=== PATIENT | male | born 1965 | race Caucasian/White ===

== ENCOUNTER → 2022-10-18 10:01 | Outpatient (CLI) | payer OTHER, SELFPAY ==
[2022-10-18 10:45] LABS: Add Manual Diff / Slide Review NO; Basophils Absolute Auto 0 /uL (0-100); Basophils Percent Auto 1.3 % (0-2); Eosinophils Absolute Auto 200 /uL (0-450); Eosinophils Percent Auto 5.6 % (2-4); Hematocrit 37.6 % (41-53); Lymphocytes Absolute Auto 1000 /uL (1100-4500); Lymphocytes Percent Auto 26.5 % (25-40); Mean Corpuscular HGB Conc 34.4 % (30-36); Mean Corpuscular Hemoglobin 32.1 PG (26-34); Mean Corpuscular Volume 93.3 fL (80-100); Monocytes Absolute Auto 400 /uL (0-900); Monocytes Percent Auto 10.3 % (3-14); Neutrophils Absolute Auto 2200 /uL (1500-7000); Neutrophils Percent Auto 56.3 % (50-75); Platelet Count 289 X10^3/uL (150-400); Red Blood Cell Count 4.03 X10^6/uL (4.5-5.9); Red Cell Distribution Width 13.2 % (11.6-14.8); White Blood Cell Count 3.9 X10^3/uL (4.5-11.0)
[2022-10-18 11:07] LABS: Erythrocyte Sedimentation Rate 8 MM/HR (0-15)
[2022-10-18 11:08] LABS: Alanine Aminotransferase 28 IU/L (<50); Albumin 4.1 g/dL (3.5-5.0); Albumin Globulin Ratio 1.9 (1.0-2.8); Alkaline Phosphatase 42 U/L (38-126); Aspartate Aminotransferase 35 IU/L (17-59); BUN Creatinine Ratio 20.5 (6-22); Bilirubin Total 0.6 mg/dL (0.2-1.3); Blood Urea Nitrogen 17 mg/dL (9-20); Calcium 9.5 mg/dL (8.4-10.2); Carbon Dioxide 32 mmol/L (22-32); Chloride 103 mmol/L (98-107); Cholesterol 122 mg/dL (140-199); Estimated Glomerular Filt Rate > 60 mL/min (>60); Globulin 2.2 g/dL (1.7-4.1); Glucose 101 mg/dL (70-100); HDL Cholesterol 52 mg/dL (40-60); HEMOLYSIS < 15 (0-50); LDL Cholesterol Calculated 40 mg/dL (<100); Potassium 4.6 mmol/L (3.4-5.1); Sodium 139 mmol/L (137-145); Total Protein 6.3 g/dL (6.3-8.2); Triglycerides 150 mg/dL (35-150)
[2022-10-18 11:12] LABS: Rheumatoid Factor < 8.6 IU/mL (<12.0)
[2022-10-19 19:32] LABS: CCP Antibodies IgG/IgA 2 units (0-19)
[2022-10-20 17:55] LABS: ANA Screen, IFA Negative (.)
[2022-10-25 09:17] LABS: HLA B27 Negative (.)
== END ==
PROVIDERS: PCP Family Medicine; Referring Provider Family Medicine; Visit Provider Family Medicine
DX: Z95.5 Presence of coronary angioplasty implant and graft (principal); I10 Essential (primary) hypertension; E78.5 Hyperlipidemia, unspecified; I25.10 Atherosclerotic heart disease of native coronary artery without angina pectoris; M25.50 Pain in unspecified joint
CPT/HCPCS: 36415; 80053; 80061; 81374; 85025; 85651; 86038; 86200; 86430

== ENCOUNTER → 2023-05-31 16:02 | Outpatient (CLI) | payer OTHER, SELFPAY ==
--- NOTE | 2023-05-31 16:04 | DI.RAD.S_ITS ---
PROCEDURE: XR LUMBAR SPINE 2-3V INDICATIONS: Progressive lower back pain with right lower leg radiculopat TECHNIQUE: 3 views of the lumbar spine were acquired. COMPARISON: None. FINDINGS: Bones: 5 [id number] vertebrae are present. There is mild levocurvature of the lower lumbar spine. There is multilevel facet arthropathy, worse at L4-5 and L5-S1. Multilevel disc height loss with degenerative endplate changes and spurring is present. This is severe at L4-5 and L5-S1. No vertebral body compression fractures. No suspicious bony lesions. Soft tissues: Overlying bowel gas pattern is normal. No suspicious soft tissue calcifications. IMPRESSION: Degenerative changes of the lower lumbar spine, severe at L4-5 and L5-S1. Dictated by: Yousif Arizmendi M.D. on 05/31/2023 at 16:28 Approved by: Yousif Arizmendi M.D. on 05/31/2023 at 16:29
== END ==
LOC: RAD 16:03
PROVIDERS: PCP Family Medicine; Referring Provider Family Medicine; Visit Provider Family Medicine
DX: M47.816 Spondylosis without myelopathy or radiculopathy, lumbar region (principal); M47.817 Spondylosis without myelopathy or radiculopathy, lumbosacral region; M54.9 Dorsalgia, unspecified; G89.29 Other chronic pain
CPT/HCPCS: 72100

== ENCOUNTER 2023-11-13 06:10 | Inpatient (IN) | payer OTHER, SELFPAY ==
[2023-11-07 08:38] VITALS: BMI 26.7
[2023-11-13] VITALS (24 sets, daily range): BP systolic 98–151; BP diastolic 54–101; PULSE 68–108; RESP 10–18; TEMP 35.8–36.7; O2SAT 92–100; BMI 25.9
[2023-11-13] MEDS: LACTATED RINGERS 1,000 ML 42 ML IV ×3 (06:54→12:38)
[2023-11-13] MEDS: ACETAMINOPHEN 325 MG TABLET 975 MG PO (06:54)
--- NOTE | 2023-11-13 07:45 | PM.PREOP ---
Pre-operative Note Interval Note History & Physical reviewed/Exam performed by Physician: Yes Changes to H&P: No
[2023-11-13] MEDS: CEFAZOLIN 2 GM/100 ML PREMIX 100 ML IV ×2 (07:52→17:21)
--- NOTE | 2023-11-13 08:16 | SUR.OPER ---
Prone on spine table, head in foam head support, padded chest and pelvic supports, gel pad at knees, lower legs supported by pillows; nipples, genitalia and toes free of pressure, arms secured on foam padded arm boards at <90 degrees abduction. Tape over blanket at thigh secured to table.
[2023-11-13] MEDS: BUPIVACAINE 0.25% (PF) 60 ML, EPINEPHrine 0.15 MG INJ (08:42)
[2023-11-13] MEDS: BUPIVACAINE LIPOSOME 266 MG/20 ML VIAL INJ (08:42)
--- NOTE | 2023-11-13 11:30 | DI.RAD.S_ITS ---
PROCEDURE: XR LUMBAR SPINE 2-3V INDICATIONS: L4-5-S1 ROBOT TLIF TECHNIQUE: Fluoroscopic guidance utilized for a surgical fusion of the lumbar spine COMPARISON: None. FINDINGS: Fluoroscopic images submitted for a surgical fusion of the lumbar spine. Please see operative note for further discussion. IMPRESSION: Fluoroscopic guidance. Dictated by: Quinten Choi M.D. on 11/13/2023 at 15:10 Approved by: Quinten Choi M.D. on 11/13/2023 at 15:10
--- NOTE | 2023-11-13 11:40 | PM.OP.1 ---
Operative Date/Time/Diagnoses Date of procedure: 11/13/23 Time of procedure: 07:40 Pre-op diagnosis: 1. Lumbar spondylolisthesis 2. Lumbar central and foramen stenosis with radiculopathy 3. Epidural lipomatosis Post-op diagnosis: same Procedure & Clinicians Procedure: 1. L4-5, L5-S1 Postero-lateral and posterior interbody fusion 2. L4-5, L5-S1 interbody cage placement. 3. L4-5, L5-S1 decompressive laminectomy with bilateral facetecomies 4. L4-5, L5-S1 Posterior segmental instrumentation 5. Burdette of bone marrow from iliac crest 6. Utilization of microsurgical technique and operating microscope 7. Utilization of robotic assisted navigation Same procedure as scheduled: Yes Indications: Patient has been having chronic back pain and worsening lumbar radiculopathy. Patient was found to have L4-5 L5-S1 spondylolisthesis with central and foraminal stenosis correlating with his symptoms. Patient failed multiple conservative management with worsening pain weakness and numbness in his lower extremity. Patient has been having difficulty performing activity of daily living. After discussing risks benefits of treatment options, patient elected proceed with surgery. Surgeon: Sofia Johnson Professor In Family Studies: Kate Whitley Click Yes if Unassisted: No Anesthesia Type: General Operative Notes Closure Type: primary Specimen(s): none sent Prosthetic devices, grafts, tissues, transplants, or devices: Globus CREO MIS screws, Rise cages Applied: catheter Estimated Blood Loss (mL): 175 Blood products transfused: none Procedure in detail: Patient was seen in the preoperative area. Risks and benefits of the surgery was discussed with the patient. Informed consent was obtained from the patient and placed in the chart. Surgical site was marked. Patient was taken to the operative room. General anesthesia was administered. Prophylactic antibiotic was given to the patient less than 30 min before the incision was made. Patient was placed into a prone position on the Ap table. Patient's back was then prepped and draped in the sterile fashion. Time-out was performed at this time. After patient was prepped and draped, patient's PSIS was palpated and marked bilaterally. Small 1 cm incision was made over the PSIS for placement of the reference probes. Two trocar was placed into the PSIS 1 on each side. The reference probe was attached to the trocar of the reference apparatus. At this time the C-arm imaging was used to confirm AP and lateral of L4-L5, L5-S1 vertebrae and merged the C-arm imaging using the [email or web address] robotic navigation system with the CT of the lumbar spine. After successful merging was completed and confirmed, skin marker was used to maria out the skin incision using the [email or web address] robotic arm. Bilateral incision was made at this time. Pre templated trajectory was used and guided using the [email or web address] robotic navigation system for bilateral L4, L5, S1 pedicle screw placement. This was done by using the robotic arm to guide the high-speed bur to make a cortical entry point. Next a drill was placed also using the robotic arm and guided using the navigation system drilling partially through bilateral L4, L5 and S1 pedicles. Next L4, L5, S1 pedicle screws it was pre templated and measured was placed onto the power dedicated truck driver and inserted into the pedicles bilaterally. After all 6 screws were placed C-arm imaging was taken of both AP and lateral to confirm the placement. Excellent placement of the screws were confirmed and a matched precisely with the pre planned screw placement using the navigation system. MARs retractor was inserted using [employer] guidence. Globus MARS retractors was placed inside the incision and docked onto the L4 and L5 lamina. Using microsurgical technique and operating microscope, a L4, L5 laminectomy and L4-5, L5-S1 facetectomy was performed using a Kerrison rongeur. The laminectomy and facetectomy was performed in order to decompress patient's cauda equina as well as the nerve roots exiting at the L4-5, L5-S1 level. Patient was found have severe lateral recess and neural foramen stenosis which was fully decompressed after the laminectomy facetectomy. More than 75% of the facets were removed during the process of decompression rendering L4-5, L5-S1 level grossly unstable and required a fusion procedure at the same time. There was also significant amount of epidural lipomatosis at both L4-5 L5-S1 level further contributes to central stenosis. The epidural lipomatosis were excised using Kerrison rongeur and pituitary to further decompress the epidural space at both levels. The disc space at L4-5, L5-S1 was identified, and a total diskectomy was performed at L4-5, L5-S1 level. The endplates were decorticated using a rasp and shaver. The total diskectomy and decortication was performed at L4-5, L5-S1 level in order to to accomplish a L4-5, L5-S1 fusion. The local bone from the laminectomy and facetectomy was saved for local bone grafting. After the total diskectomy and decortication was completed, Viacel bone graft material was combined with local bone that was harvested earlier. At this time, a separate skin is incision was made over the iliac crest. A Jamshidi needle was inserted into the iliac crest through a separate skin incision. 5 cc of bone marrow aspiration was obtained through the separate skin incision using a Jamshidi needle from the iliac crest. The bone marrow aspiration was combined with local bone and the Viacel bone grafting material. The bone grafting material was placed into the L4-5, L5-S1 interbody space along with a expandable cage. The cage was expanded to its maximum height using the torque limiting screwdriver. The disc preparation as well as the cage insertion were also performed under navigation guidance. After the cage was placed, AP and lateral C-arm imaging was taken to confirm placement of the cage and excellent position was confirmed. Globus MARS retractor was inserted and docked onto the L4-5, L5-S1 posterolateral gutter on the right side. Using the power drill, posterior-lateral decortication was performed at L4-5, L5-S1 level until bleeding cortical bone was identified. The remaining bone grafting material was placed into the L4-5, L5-S1 posterior lateral gutter he order to accomplish posterolateral fusion at the L4-5, L5-S1 level. At this time the tulips were attached to the L4, L5, S1 pedicle screw shanks. After measuring the length of the rods, they were inserted into the tulips of the pedicle screws and locked in place using locking caps and torque limiting screwdriver bilaterally. Total 6 caps and 2 titanium rods was used in order to complete the posterior instrumentation construct. After all the hardware was placed, and confirmed with AP and lateral C-arm imaging, the wound was then irrigated with sterile normal saline and packed with Ray-Lincoln gauze for 3 min to accomplish hemostasis. After the gauze was removed the deep fascia was closed with #1 Vicryl suture. The subcutaneous layer was closed with 2-0 Vicryl. The skin was closed with skin anshul. Patient tolerated the procedure well. There were no complications. Neuro monitoring system was used to monitor patient's neurologic status throughout entire procedure. There was no disturbance of the neural monitoring signals throughout the case. The Operation could not have been safely performed without compromising the technical result or length of the procedure, without the assistance of a skilled administrative sales assistant. The administrative sales assistant was medically necessary for proper positioning, retraction and manipulation of instruments, proper exposure, surgical preparation, and manipulation of tissue. Complications: none Post-operative Condition: stable Disposition: PACU Plan for aftercare: Admit to inpatient hospital
[2023-11-13] MEDS: HYDROMORPHONE 1 MG INJ IV ×3 (12:15→12:45)
[2023-11-13] MEDS: OXYCODONE IR 5 MG TABLET PO ×3 (12:19→20:05)
[2023-11-13] MEDS: hydrOXYzine 50 MG/ML INJ 25 MG IM (12:19)
[2023-11-13] MEDS: MEPERIDINE 50 MG/ML INJ 12.5 MG IV (12:30)
[2023-11-13] MEDS: ONDANSETRON 4 MG/2 ML INJ IV (12:38)
--- NOTE | 2023-11-13 19:10 | PC.NURSE ---
Addendum entered by Marilyn Leyva R.N. 11/13/23 19:16: IVF saline locked. Original Note: Patient arrived to Room 217 at 1340 this afternoon. He is initially lethargic but awakens to answer questions. He reports numbness to B hands and B feet and legs R >L. He states at baseline he was having difficulty moving and ambulating due to increasing BLE weakness. However he denies falling, and states he was able to drive. He reports pain to back 7/10 but falls instantly back to sleep RR- 8-12 post op, reported to RT patient appears to have pauses like with sleep apnea. He is placed on 2 LNC and 02 sats remain 97-98%. He awakens for dinner and is OX4, he reports pain is controlled, cooling pad placed to back. He is educated on IS, SCD's and repositioning with spinal precautions. Fonseca catheter draining adequate clear, yellow urine. IVF LR running at 100 ml/hr. Continuous monitoring.
[2023-11-13] MEDS: GABAPENTIN 300 MG CAPSULE PO (20:05)
[2023-11-13] MEDS: METOPROLOL ER 50 MG TABLET PO (20:05)
[2023-11-13] MEDS: VALSARTAN 80 MG TABLET 160 MG PO (20:05)
[2023-11-13] MEDS: DOCUSATE 100 MG CAPSULE PO (20:05)
[2023-11-13] MEDS: SENNOSIDES 8.6 MG TABLET 17.2 MG PO (20:05)
[2023-11-13] MEDS: ATORVASTATIN 20 MG TABLET 40 MG PO (20:06)
[2023-11-14] MEDS: CEFAZOLIN 2 GM/100 ML PREMIX 100 ML IV (00:45)
[2023-11-14] MEDS: OXYCODONE IR 5 MG TABLET PO ×4 (00:46→12:16)
[2023-11-14 00:56] VITALS: BP 106/63; PULSE 86; RESP 12; TEMP 36.8; O2SAT 95
[2023-11-14 00:57] VITALS: BP 106/63; PULSE 86
[2023-11-14 06:40] LABS: Hematocrit 33.9 % (41-53); Hemoglobin 11.5 g/dL (13.5-17.5)
--- NOTE | 2023-11-14 07:42 | P.PN_ITS ---
Subjective Subjective Date Patient Seen: 11/14/23 Time Patient Seen: 07:42 Interval history: Pain has been severe. Denies fever chills. No nausea or vomiting. Patient has not yet worked with physical therapy. Exam Vital Signs (past 8 hours): - 11/13/23 23:52 11/14/23 00:56 11/14/23 00:57 Temperature 98.1 F 98.3 F Pulse Rate 86 86 86 Respiratory Rate 18 12 Blood Pressure 104/54 L 106/63 106/63 Pulse Oximetry 93 95 Oxygen Flow Rate 0 Fraction of Inspired Oxygen 21 SaO2/FiO2 Ratio 438 Oxygen Delivery Method Room Air Oxygen Flow Rate 0 Narrative Exam Narrative: 50-year-old male resting comfortably in bed no apparent distress. Motor functions intact bilateral lower extremities. Sensation diminished on the right compared to left. Sensation on the right has been diminished prior to surgery. Const General: cooperative and comfortable Nutritional Appearance: average body habitus Orientation: alert Resp Effort & Inspection: normal respiratory effort and able to speak in complete sentences Objective Labs 11/14/23 06:00 Labs: Laboratory Results - last 24 hr 11/14/23 06:00 Hgb 11.5 L Hct 33.9 L [facility] Medical History (Updated 11/07/23 @ 09:25 by Kari Kim RN) History of COVID-19 (~2019) Bicuspid aortic valve Chest pain Ascending aorta dilation Anemia Osteoarthritis Shoulder pain Fractures Chronic back pain Chicken pox (~1968) Hemorrhoid GERD (gastroesophageal reflux disease) Aortic regurgitation Heart murmur Hypertension Hyperlipidemia Lumbar back pain with radiculopathy affecting lower extremity CAD (coronary artery disease) Polyarthralgia Surgical History (Updated 11/07/23 @ 08:41 by Kari Kim RN) History of cardiac catheterization (11/19/21) Anesthesia History of coronary artery stent placement (~11/2021) Family History Father Cancer Mother Cancer Grandfather Alzheimer's disease Grandmother History of emphysema Grandmother Stroke Social History household members: spouse, family and children Smoking Status: Never smoker alcohol intake: current Assessment & Plan Post-op Postoperative Procedures: Procedures Operation Date: 11/13/23 07:45 Actual Procedure Side Surgeon p L4-5, L5-S1 TLIF with posterior instrumentation -Robot Sofia Johnson MD Postoperative day: 1 Postoperative status: doing well and marginal pain control Postoperative plan: routine post-op care Postoperative plan narrative: Mobilize with physical therapy, limit bending, twisting, lifting Discontinue Fonseca catheter Multimodal pain management Disposition likely home today or tomorrow Quality VTE Deep Vein Thrombosis/Pulmonary Embolism Present on Admission: No
[2023-11-14 08:00] VITALS: BP 102/64; PULSE 71; RESP 16; TEMP 36.3; O2SAT 97
[2023-11-14] MEDS: VALSARTAN 80 MG TABLET 160 MG PO (09:19)
[2023-11-14] MEDS: DOCUSATE 100 MG CAPSULE PO (09:19)
[2023-11-14] MEDS: ACETAMINOPHEN 325 MG TABLET 650 MG PO (09:20)
--- NOTE | 2023-11-14 11:15 | PT.IIE ---
Current Diagnoses Spondylolisthesis, lumbar region (11/13/23) Spinal stenosis, lumbar region without neurogenic claudication (11/13/23) Surgery Performed Operation Date: 11/13/23 07:45 Actual Procedures p L4-5, L5-S1 TLIF with posterior instrumentation -Robot - Sofia Johnson MD Surgical History (Last Updated 11/07/23 @ 08:41 by Kari Kim, RN) Anesthesia History of cardiac catheterization (11/19/21) History of coronary artery stent placement (~11/2021) Medical History (Last Updated 11/07/23 @ 09:25 by Kari Kim RN) Anemia Aortic regurgitation Ascending aorta dilation Bicuspid aortic valve CAD (coronary artery disease) Chest pain Chicken pox (~1968) Chronic back pain Fractures GERD (gastroesophageal reflux disease) Heart murmur Hemorrhoid History of COVID-19 (~2019) Hyperlipidemia Hypertension Lumbar back pain with radiculopathy affecting lower extremity Osteoarthritis Polyarthralgia Shoulder pain Physical Therapy Inpatient Evaluation/Re-Eval M1 PT/OT-IP Prior Functional Status Start: 11/14/23 13:05 Freq: NEEDED Status: Active Protocol: Document 11/14/23 11:15 AB (Rec: 11/14/23 13:17 AB [id number]) Medical Review Prior Functional Status Medical History Reviewed Yes Communication able to make needs known Mobility and Gait pt stated that he was independent with all mobilities and ambulation without AD Social History Household Members spouse,family,children Living Arrangements House Number of Floors (Floors) Two Floors Number of Stairs To Enter/Railing? 2 steps + 1 step without rails to enter the house Home Environment Standard Height Toilet,Walk in Shower Home Equipment Front Wheel Walker,Crutches, Raised Toilet Seat w/Armrests, Grab Bars Near Toilet Additional Social History Comment pt has a walking stick spouse borrowed a FWW for pt M2 PT-IP Current Condition Start: 11/14/23 13:05 Freq: NEEDED Status: Active Protocol: Document 11/14/23 11:15 AB (Rec: 11/14/23 13:17 AB [id number]) Physical Therapy Current Condition Current Condition Evaluation Date 11/14/23 Treatment Diagnosis s/p L4-5, L5S1 TLIF; difficulty in walkiing Onset Date 11/13/23 M3 PT-IP Subjective Start: 11/14/23 13:05 Freq: NEEDED Status: Active Protocol: Document 11/14/23 11:15 AB (Rec: 11/14/23 13:17 AB [id number]) Subjective Physical Therapy Visit Type Type Initial Evaluation Visit Start Time 11:15 Visit Stop Time 11:50 Number of COMMUNITY LIVING COACH Visits 0 Physical Therapy Visit Comments Patient Comments agreeable to do PT Therapy Pain Assessment Pain When Pain Assessed At Rest Pain Present Pain Present Pain Reported Location Low back Intensity 4 Scale Used Numeric (0 - 10) Pain Behaviors Guarding Pain Management Techniques Apply Cold,Distraction, Modification of Treatment,Re- positioning,Timing of Activity with Medications M4 PT-IP Mobility and Gait Start: 11/14/23 13:05 Freq: NEEDED Status: Active Protocol: Document 11/14/23 11:15 AB (Rec: 11/14/23 13:17 AB [id number]) PT-Bed Mobility Assessment Rolling Type of Rolling Log Rolling Level of Assist Standby Assistance Supine to Sit Supine to Sit Standby Assistance Sit to Supine Sit to Supine Standby Assistance PT-Transfer Assessment Sit to and From Stand Sit to and from Stand Standby Assistance,Contact Guard Assistance,1 Person Assistance,Use of Upper Extremities Equipment Transfer Assistive Device Gait Belt,Front Wheeled Walker Orthotic/Prosthetic Devices or Brace: No Transfers Transfer Destination Bed,Chair Transfer Technique ambulated Transfer Ability Level of Assist Standby Assistance,Contact Guard Assistance Comments Mobility Comments pt sitting on the chair. spouse in room. obtained PLOF and home set up from pt. reviewed back precautions with pt and log roll bed mobility. pt able to recall. pt completed sit to stand CGA and ambulated in room using FWW ~ 40 ft CGA. pt sat on EOB. completed sit to supine SBA. pt sat on EOB. completed sit to stand from bed SBA and step transfer to chair SBA using fWW. caregiver training conducted. educated spouse on how to put safety belt on and how to assist pt. educated pt and spouse on how to do steps using SPC and FWW . pt completed sit to stand CGA with spouse assisting and ambulated pt towards the step. pt completed up/down platform step using SPC + SECURITY CONSULTANT with PT initially assisting CGA. pt repeated with spouse assisting and completed safely. pt completed up/down platform step using FWW with PT assisiting CGA and cues. pt repeated again with spouse assisting. pt ambulated back to his room and sat on the chair. call light and table placed within reach. pt and spouse without other concerns. Gait Assessment Gait Gait Assistance Required: Standby Assistance,Contact Guard Assist Distance (Feet) 40 Able to Maintain Weight Bearing Status Yes During Gait Assistive Devices Assistive Device Gait Belt,Front Wheeled Walker Orthotic/Prosthetic Devices or Brace: No Gait Deviations General Gait Pattern Decreased Stride Length, Decreased Feet Clearance Factors Limiting Gait Function Factors Limiting Gait Function Decreased Activity Tolerance, Decreased Sensation,Decreased Strength,Limited Range of Motion,Pain,Poor Balance,Poor Safety Awareness Stair Climbing Assessment Evaluation Level of Assist On Stairs Contact Guard Assistance Devices Stair Climbing Assistive Devices Straight Cane,Four Wheel Walker Technique/Endurance Stair Climbing Direction Ascend and Descend Stair Climbing Technique Step to Step Number of Steps Climbed 1 Query Text: Stair Climbing Set # Repetitions (reps) 4 Comments Stair Climbing Comments pls refer to mobility section for details PT-Balance Assessment Sitting Balance and Reactions Static Sitting Balance Ability Normal Dynamic Sitting Balance Ability Good Standing Balance and Reactions Static Standing Balance Ability Fair Dynamic Standing Balance Ability Fair Device Used FWW M5 PT-IP Objective Assessments Start: 11/14/23 13:05 Freq: NEEDED Status: Active Protocol: Document 11/14/23 11:15 AB (Rec: 11/14/23 13:17 AB [id number]) Orientation Orientation/Cognition Level of Alertness Alert Orientation Name,Place,Situation Language Function Ability No Deficits Noted Safety Awareness Understands Safety Issues Memory Description No Deficits Noted Gross Range of Motion Lower Extremity ROM Assessment Within Functional Limits Strength Comments Strength Comments LLE: 4/5 RLE: 4-/5 Coordination Assessment Gross Coordination Gross Coordination WNL Sensation Assessment Sensation Sensation Description Numbness Comments Sensation Comments BLE chronic numbness Muscle Tone Muscle Tone WNL Yes M6 PT-IP Treatment Start: 11/14/23 13:05 Freq: NEEDED Status: Active Protocol: Document 11/14/23 11:15 AB (Rec: 11/14/23 13:17 AB [id number]) Physical Therapy Treatment Education Education Provided Precautions,Safety M7 PT-IP Assessment and Plan Start: 11/14/23 13:05 Freq: NEEDED Status: Active Protocol: Document 11/14/23 11:15 AB (Rec: 11/14/23 13:17 AB [id number]) PT Summary Assessment and Plan Potential Rehabilitation Potential Good Status of Condition at Evaluation Stable Summary Impairments Pain,ROM,Strength,Balance, Coordination,Sensation,Tone, Cognition,Bed Mobility, Transfers,Gait,Activity Tolerance Assessment Summary pt is a 58 y/o M s/p L4-5, L5S1 TLIF POD 1. pt with back precautions. pt requiring SBA to cGA with mobility using fWW. caregiver training conducted and spouse was able to assist pt safely. pt may go home when medically stable. Goals Bed Mobility Goal Independent Transfer Goal Independent,Front Wheeled Walker Gait Goal Independent,Front Wheel Walker Gait Distance 200 Other Goals up/down 2 steps using SPC+ SECURITY CONSULTANT CGA up/down 1 step using FWW SBA Days to Meet Goals 5 Frequency of Treatment Frequency Of Treatment Twice a Day Treatment Plan Physical Therapy Treatment Plan Bed Mobility Training,Transfer Training,Gait Training, Therapeutic Exercise,Balance Retraining,Post Op Education, Discharge Planning,Hot or Cold Pack,Neuromuscular Re-ed, Coordination Retraining,Manual Therapy Precautions Lumbar Precautions Log Roll,No Twisting,Limit Bending,Lifting Restriction of 10 lbs,Gait Belt above Incisional Area Recommendations To Nursing Amount of Assist Needed 1 Person Assist Discharge Recommendations PT Discharge Recommendations Home with Assistance Transportation Needs at Discharge Private Vehicle
--- NOTE | 2023-11-14 11:16 | OT.IP.EVAL ---
Current Diagnoses Spondylolisthesis, lumbar region (11/13/23) Spinal stenosis, lumbar region without neurogenic claudication (11/13/23) Surgery Performed Operation Date: 11/13/23 07:45 Actual Procedures p L4-5, L5-S1 TLIF with posterior instrumentation -Robot - Sofia Johnson MD Past Medical History (Last Updated 11/07/23 @ 09:25 by Kari Kim, RN) Anemia Aortic regurgitation Ascending aorta dilation Bicuspid aortic valve CAD (coronary artery disease) Chest pain Chicken pox (~1968) Chronic back pain Fractures GERD (gastroesophageal reflux disease) Heart murmur Hemorrhoid History of COVID-19 (~2019) Hyperlipidemia Hypertension Lumbar back pain with radiculopathy affecting lower extremity Osteoarthritis Polyarthralgia Shoulder pain Surgical History (Last Updated 11/07/23 @ 08:41 by Kari Kim, RAF) Anesthesia History of cardiac catheterization (11/19/21) History of coronary artery stent placement (~11/2021) Occupational Therapy Inpatient Evaluation/Re-Eval M1 PT/OT-IP Prior Functional Status Start: 11/14/23 13:05 Freq: NEEDED Status: Active Protocol: Document 11/14/23 14:14 CGR (Rec: 11/14/23 14:23 CGR [id number]) Medical Review Prior Functional Status Medical History Reviewed Yes Communication able to make needs known Mobility and Gait pt stated that he was independent with all mobilities and ambulation without AD Activities of Daily Living and IADL's Pt was IND in all ADLs and I ADLs at baseline. Social History Household Members spouse,family,children Living Arrangements House Number of Floors (Floors) Two Floors Number of Stairs To Enter/Railing? 2 steps + 1 step without rails to enter the house Home Environment Standard Height Toilet,Walk in Shower Home Equipment Front Wheel Walker,Crutches, Raised Toilet Seat w/Armrests, Grab Bars Near Toilet Additional Social History Comment pt has a walking stick spouse borrowed a FWW for pt M2 OT-IP Current Condition Start: 11/14/23 14:14 Freq: Status: Active Protocol: Document 11/14/23 14:14 CGR (Rec: 11/14/23 14:23 CGR [id number]) Occupational Therapy Current Condition Current Condition Evaluation Date 11/14/23 Treatment Diagnosis L4-S1 TLIF Diagnosis Onset Date 8/5/24 Post Operative Precautions Lumbar Precautions Log Roll,No Twisting,Limit Bending,Lifting Restriction of 10 lbs,Gait Belt above Incisional Area M3 OT- IP Subjective and Pain Start: 11/14/23 14:14 Freq: Status: Active Protocol: Document 11/14/23 14:14 CGR (Rec: 11/14/23 14:23 CGR [id number]) OT- Subjective Occupational Therapy Visit Type Type Initial Evaluation Visit Start Time 10:31 Visit Stop Time 11:16 Notes Pt's present throughout OT Pain Assessment Pain When Pain Assessed At Rest Pain Present Pain Present Pain Reported Location Low back Intensity 4 Scale Used Numeric (0 - 10) Management Techniques Distraction,Modification of Treatment,Re-positioning, Timing of Activity with Medications M4 OT- IP ADL's Start: 11/14/23 14:14 Freq: Status: Active Protocol: Document 11/14/23 14:14 CGR (Rec: 11/14/23 14:23 CGR [id number]) OT [id number] Comments OT Self-Feeding Comments not meal time OT ADL-Grooming General Evaluation Grooming Ability Independent Areas Needing Assistance Face Washing Comments OT Grooming Comments standing at sink OT ADL-Oral Care Comments Oral Care Comments pt states performed earlier today OT ADL-Dressing General Eval Lower Body Dressing Ability Standby Assistance Areas Needing Assistance Socks Assistive Devices Dressing Assistive Devices Transfer Station Attendant,Sock Aid Comments OT Dressing Comments Pt educated on use of old testament professor and sock aid for LB dressing then performed to the LLE. Pt' s ordered hip kit for home use. OT ADL-Toileting General Evaluation Toileting Ability Standby Assistance Comments OT Toileting Comments seated on toielt OT ADL-Bathing Comments OT Bathing Comments not performed M5 OT- IP IADL's Start: 11/14/23 14:14 Freq: Status: Active Protocol: Document 11/14/23 14:14 CGR (Rec: 11/14/23 14:23 CGR [id number]) OT-Instrumental Activities of Daily Living Deficits IADL Deficits Identified No Deficits Home Safety Awareness Awareness of Need for Assistance at Home Good Awareness Ability to Problem Solve Emergency Able to Problem Solve Situations Medication Management Medication Management No Deficits Identified Money Management Money Management No Deficits Identified Meal Preparation Meal Preparation No Deficits Identified Soft Iron Inspector Soft Iron Inspector No Deficits Identified Driving Driving Comments Pt is an active cab driver at baseline. M6 OT- IP Functional Cognition Start: 11/14/23 14:14 Freq: Status: Active Protocol: Document 11/14/23 14:14 CGR (Rec: 11/14/23 14:23 CGR [id number]) Cognitive Factors Limiting Selfcare Function Cognitive Ability Level of Alertness Alert Patient Orientation Name,Age,Birthday,Month,Date, Year,Day of Week,Place, Situation Attention Span Ability Capable of Focused Attention, Capable of Sustained Attention Ability to Follow Commands Able to Follow Multi-Step Commands OT- Vision and Hearing OT- Hearing Assessment OT- Hearing Assessment WFL OT- Vision Assessment Visual Acuity Glasses All The Time Visual Attentiveness WFL Occular Pursuits WFL Visual Convergence WFL M7 OT- IP Mobility and Balance Start: 11/14/23 14:14 Freq: Status: Active Protocol: Document 11/14/23 14:14 CGR (Rec: 11/14/23 14:23 CGR [id number]) OT- Bed Mobility Assessment Rolling Type of Rolling Log Rolling,Roll to Right,Roll to Left Level of Assistance Standby Assistance Supine to Sit Supine to Sit Assist Standby Assistance Sit to Supine Sit to Supine Assist Standby Assistance Scooting Scooting to Edge of Bed Standby Assistance OT-Transfer Assessment Sit to and From Stand Sit to and from Stand Contact Guard Assistance Transfers Transfer Ability Contact Guard Assistance Technique Transfer Destination Bed,Chair,Toilet Transfer Technique Stand Step Pivot Devices Transfer Assistive Devices Front Wheeled Walker Comments Mobility Comments mobility around the room and bathroom OT- Balance Assessment Sitting Balance and Reactions Static Sitting Balance Ability Normal Dynamic Sitting Balance Ability Normal M8 OT- IP Objective Assessments Start: 11/14/23 14:14 Freq: Status: Active Protocol: Document 11/14/23 14:14 CGR (Rec: 11/14/23 14:23 CGR [id number]) OT Gross Range of Motion Upper Extremity Range of Motion Assessment Within Functional Limits OT Strength Upper Extremity Strength Assessment Within Functional Limits Comments Strength Comments 5/5 OT- Coordination Assessment Upper Extremity Finger to Nose Test Within Functional Limits Finger Tapping Test Within Functional Limits OT-Muscle Tone Assessment Muscle Tone WNL Yes OT Sensation Assessment Edema Edema Absent M9 OT- IP Assessment and Plan Start: 11/14/23 14:14 Freq: Status: Active Protocol: Document 11/14/23 14:14 CGR (Rec: 11/14/23 14:23 CGR [id number]) OT Summary Assessment and Plan Potential Rehabilitation Potential Excellent Analytic Complexity at Evaluation Low Summary OT Impairments Pain,Functional Mobility, Dressing,Toileting,Bathing, Toilet Transfers,Shower Transfers,Activity Tolerance Progress Towards Goals Progressing Toward Goals Assessment Summary Pt presents as a low complexity evaluation s/p admit for L4-S1 TLIF. Pt is performing well but with pain on this date. Pt will benefit from continued OT services but demonstrates understanding of back precautions and LB dressing. Pt is planned for discharge home with family possibly today. Goals Grooming Goal Independent Dressing Goal Independent,Transfer Station Attendant,Sock Aid Toileting Goal Independent Bathing Goal Independent Toilet Transfer Goal Independent Shower Transfer Goal Independent Days to Meet Goals 2 Frequency of Treatment Frequency Of Treatment Once a Day Treatment Plan OT Treatment Plan ADL Training,Functional Mobility,Patient/Family Education,Discharge Planning Other Treatment Recommendations and Next shower Treatment Focus Discharge Recommendations OT Discharge Recommendations Home with 31/10 Assist Available Home Equipment Needs pt's ordered shower chair , hip kit, and they are looking for a 2ww. Transportation Needs at Discharge Private Vehicle
--- NOTE | 2023-11-14 14:04 | PM.DS.1 ---
History of Present Illness History of Present Illness Date Patient Seen: 11/14/23 Chief complaint: Back pain Narrative: See progress note Discharge Providers Provider Date of admission: 11/13/23 06:10 Discharge Date: 11/14/23 Primary care physician: Santi Lee DO Consults: 11/13/23 13:48 Consult to Occupational Therapy Evaluate & Treat Comment: Physician Instructions: Evaluate and treat Consult to Physical Therapy Evaluate & Treat Comment: Physician Instructions: Evaluate and Treat Discharge provider: Anurag Adrian PA-C Summary Hospital Course Discharge Diagnosis: 1. Lumbar spondylolisthesis 2. Lumbar central and foramen stenosis with radiculopathy 3. Epidural lipomatosis Hospital Course: 1. L4-5, L5-S1 Postero-lateral and posterior interbody fusion 2. L4-5, L5-S1 interbody cage placement. 3. L4-5, L5-S1 decompressive laminectomy with bilateral facetecomies 4. L4-5, L5-S1 Posterior segmental instrumentation 5. [place] of bone marrow from iliac crest 6. Utilization of microsurgical technique and operating microscope 7. Utilization of robotic assisted navigation Same procedure as scheduled: Yes Indications: Patient has been having chronic back pain and worsening lumbar radiculopathy. Patient was found to have L4-5 L5-S1 spondylolisthesis with central and foraminal stenosis correlating with his symptoms. Patient failed multiple conservative management with worsening pain weakness and numbness in his lower extremity. Patient has been having difficulty performing activity of daily living. After discussing risks benefits of treatment options, patient elected proceed with surgery. Surgeon: Sofia Johnson Airplane Mechanic Apprentice: Kate Whitley Click Yes if Unassisted: No Anesthesia Type: General Operative Notes Closure Type: primary Specimen(s): none sent Prosthetic devices, grafts, tissues, transplants, or devices: Globus CREO MIS screws, Rise cages Applied: catheter Estimated Blood Loss (mL): 175 Blood products transfused: none Patient admitted to the hospital for the above-mentioned procedure. Patient consented to the same. Patient underwent L4-L5, L5-S1 fusion November 13, 2023. Patient back in his room recovering well as in stable condition. Patient has worked with physical therapy. Patient has assistance at home. Continue multimodal pain management. Wound care reviewed. Discharge home today in stable condition. Exam Vital Signs (past 8 hours): - 11/14/23 07:00 11/14/23 08:00 Temperature 97.3 F L Pulse Rate 71 Respiratory Rate 16 Blood Pressure 102/64 Pulse Oximetry 97 Oxygen Delivery Method Room Air Oxygen Flow Rate 0 Fraction of Inspired Oxygen 21 SaO2/FiO2 Ratio 438 Oxygen Delivery Method Room Air Oxygen Flow Rate 0 Narrative Exam Narrative: See progress note Objective Labs 11/14/23 06:00 Labs: Laboratory Results - last 24 hr 11/14/23 06:00 Hgb 11.5 L Hct 33.9 L PFSH Medical History (Updated 11/07/23 @ 09:25 by Kari Kim RN) History of COVID-19 (~2019) Bicuspid aortic valve Chest pain Ascending aorta dilation Anemia Osteoarthritis Shoulder pain Fractures Chronic back pain Chicken pox (~1968) Hemorrhoid GERD (gastroesophageal reflux disease) Aortic regurgitation Heart murmur Hypertension Hyperlipidemia Lumbar back pain with radiculopathy affecting lower extremity CAD (coronary artery disease) Polyarthralgia Surgical History (Updated 11/07/23 @ 08:41 by Kari Kim RN) History of cardiac catheterization (11/19/21) Anesthesia History of coronary artery stent placement (~11/2021) Family History Father Cancer Mother Cancer Grandfather Alzheimer's disease Grandmother History of emphysema Grandmother Stroke Social History household members: spouse, family and children Smoking Status: Never smoker alcohol intake: current Discharge Assessment & Plan Assessment and Plan Assessment: Patient progressing as expected status post L4-L5, L5-S1 fusion Plan of Treatment: Weight-bearing as tolerated, limit bending, twisting, lifting Wound care reviewed. Multimodal pain management. Follow up outpatient Orthopedics in 2 weeks Discharge home today in stable condition. Discharge Plan Discharge Plan Patient Disposition: Home Discharge orders & Medications Prescriptions: New polyethylene glycol 3350 17 gram Powder In Packet 17 g PO DAILY PRN (Reason: Constipation) Qty: 14 0RF oxycodone 5 mg Tablet 5 mg PO Q3H PRN (Reason: Pain, Moderate (4-6)) Qty: 40 0RF Continued valsartan 160 mg tablet 160 mg PO BID rosuvastatin 20 mg tablet 20 mg PO BEDTIME metoprolol succinate 50 mg tablet extended release 24 hr 50 mg PO BEDTIME aspirin 81 mg tablet,delayed release (DR/EC) 81 mg PO DAILY turmeric 400 mg capsule 2,000 mg PO DAILY acetaminophen [Tylenol Extra Strength] 500 mg tablet 500 mg PO Q6H PRN (Reason: Pain) prednisone 10 mg Tablet 10 mg PO DAILY PRN (Reason: Arthritis flare) etanercept 50 mg/mL (1 mL) Pen Injector 50 mg SUBCUT QWEEK gabapentin 300 mg capsule 300 mg PO BEDTIME Follow up/Referrals: Sofia Johnson MD [Physician] - 11/27/23 10:00 am (Follow up w/ Moni Rodriguez PA-C, at [facility] in [place].) Santi Lee DO [Primary Care Provider] - Diet/Activity/Treatments Diet: Diet as Tolerated Activity: No deep bending or twisting at the waist. No lifting more than 10 pounds. Skin/Wound/Dressing Care Report to your healthcare provider any signs of infection, such as:: chills, fever, night sweats, unusual drainage and unusual redness Dressing: May shower. Keep dressing as dry as possible. If dressing becomes wet or dirty, may remove and replace with clean, dry gauze. No bathing or otherwise soaking incisions. Do not apply any creams, lotions, or ointments to incisions. Visit Report/Discharge Packet Instructions: DI for Prescription Opioid Use Stand Alone Forms: Congestive Heart Failure, Patient Portal/API, Stroke Signs & Symptoms, Surgery Discharge Discharge Data Primary Care Provider: Santi Lee Quality VTE Deep Vein Thrombosis/Pulmonary Embolism Present on Admission: No
--- NOTE | 2023-11-14 14:27 | CM.DANOTE ---
Patient is a 58 yo male who was admitted INPT Status on 11/13/23 for TLIF. Pt has [employer] for insurance and his PCP is Dr. Santi Lee. EMR was reviewed. Per Ortho PA, pt tolerated procedure well and pain better managed now and did well with PT/OT and stable for discharge home today. Per PT, spouse was bedside and participated in CG training and recommending home with spouse assist and spouse picked up a walker for home use after discharge. SW met briefly bedside with pt and spouse and explained role and confirms that they live in [place] and they have older kids at home and 2 stairs to enter. Pt is independent at baseline with ADLs and drives and does not use DME at baseline and they deny any hx of HH or SNF. Spouse is informally pt's POA. Both are in agreement with discharge home today and spouse can assist and transport home and they do not anticipate any discharge needs at this time. Plan: patient to discharge home today via spouse POV and outpt f/u with Ortho and no further SW needs at this time. NAEEM Wyatt Discharge Planning/Care Management CM Discharge Assessment Start: 11/14/23 14:26 Freq: Status: Active Protocol: Document 11/14/23 14:26 BF (Rec: 11/14/23 14:27 BF [id number]) Discharge Planning Assessment Assigned Needle Control Cheniller NAEEM Morris DPOA/Assigned Designee Name spouse Lenore Contact Information informal Advance Directives? No Advance Directives on File No History Provided By Patient,Significant Other, Medical Record Has Patient been admitted in last 30 No days? Prior Living Arrangements House Household Members spouse,family,children Type of transporation used prior to Drives own vehicle admit Independent with ADL's Yes Is patient alert and oriented? Yes Caregiver for Another No DME Already Rented / Owned FWW / Walker Patient/Family Preference OP PT Therapy Barriers to Discharge No Discharge Plan Home Transportation Arrangement spouse able to provide transport at d/c Referrals Initiated None needed Whiteboard Updated in Patient Room with Yes name and ext. # of Needle Control Cheniller Review Status In Process Please Provide Date Initial DC 11/14/23 Assessment Was Performed Next Review Type Continued Stay Review Pre-Anesthesia Assessment Start: 11/07/23 08:38 Freq: Status: Active Protocol: Document 11/07/23 08:38 CAB (Rec: 11/07/23 09:25 CAB [id number]) Pre-Anesthesia Assessment Patient Information Reviewed Via Phone Assessment Assessment Completed With Patient Diagnostic Results BMP/CMP,CBC,EKG Comment Outside labs/EKG scanned - EKG 10/26/22 Primary Care Provider Santi Lee Seen Specialist in Last 12 Months Yes Specialist Seen Log Deckman,Orthopedist,Other Comment Rheumatology Primary Language K[employer] Specialist Required No Height 180.34 cm Weight 87.09 kg Body Mass Index (BMI) 26.7 Hearing Ability Normal Visual Assist Glasses Dentition Type Teeth, Natural Present Barriers to Learning None Hx Anesthesia Reactions No: Sedation only Hx Family Anesthesia Reaction No Hx Malignant Hyperthermia No Hx Blood Transfusions No Anesthesia Review Requested No Gel Coater No alcohol intake current alcohol intake frequency a few times a week Smoking Status Never smoker Substance Use Type does not use Pain Present Pain Reported Musculoskeletal Symptoms Abnormal Gait,Back Pain, Difficulty Walking,Joint Pain, Limited Range of Motion, Radiating Pain into Limb History of Falling (Recent or History of No ) Patient is completely paralyzed or No completely immobile Mental Status Oriented to own ability Is patient on oxygen? No Does patient have FERRER/SOB No Hx Sleep Apnea No Currently Taking a Beta [place] Yes: Metoprolol Can You Climb a Flight of Stairs Without Yes SOB Hx Chest Pain Yes: Nothing since heart since Hx SOB No Hx Syncope or Dizziness No Anti-Coagulant Therapy Yes: ASA-pt will check if to hold or continue Has a Log Deckman Yes: Visit 11/06/[address] Epstein @ [facility] Hx Pacemaker/ICD No Pacemaker Rep Required? No Cardiac Clearance Received Yes Comment Cardiac records scanned and in surgery folder Diet Type At Home Regular Dysphagia No Gastrointestinal Symptoms Reflux Chronic UTI No Urinary Catheter Present No Hx Urinary Self Catheterization No Diabetes No HgbA1C 6.0 Date 10/11/23 Hx Drug Resistant Organism No Presence of External or Internal Medical Yes: Cardiac stents x 2 Devices Have you had any close contact with No someone diagnosed with COVID-19? Marital Status Lives With spouse,family,children Current Living Arrangements House Number of Floors (Floors) Two Floors Support System Child/Children,Spouse Does the Patient Have Assistance After Yes Surgery Patient Discharge Plan Description Return Home Comment Pt advised two day length of stay per surgeon Feels Safe in Current Environment Yes Been Physically Hurt or Threatened By a No Person in Current Environment Do you have thoughts of harming yourself None or others? Are you currently considering suicide? No Do you have a plan to hurt yourself or No Plan others? Do You Have Any Spiritual Beliefs That No May Affect Your HC Choices? Do You Have Any Cultural Practices That No May Affect Your HC Choices? Comment Hunter Who Can We Speak to About Patient's Care Family, friends Identifying Code for Release of Patient Declines to issue Information Health Care Proxy/Next of Kin Lenore () Health Care Proxy Emergency Contact Name Charu (daughter) Emergency Contact Advance Directives? No Power of Resource Agent No PAC Instructions Durable medical equipment, Medications to take/avoid, Nasal antibiotic,No ETOH/ petroleum product on skin DOS, NPO,Post-op transportation,Pre -surgical wash,Sensory aids, Sturdy shoes/comfortable clothes,Do not bring valuables and remove jewelry
[2023-11-14] MEDS: OXYCODONE IR 10 MG TABLET PO (14:40)
== END 2023-11-14 14:50 | disposition home or self-care (01) | DRG 455 ==
PROVIDERS: Admitting Provider Orthopaedic Surgery Orthopaedic Surgery of the Spine; PCP Family Medicine; Referring Provider Orthopaedic Surgery Orthopaedic Surgery of the Spine; Visit Provider Orthopaedic Surgery Orthopaedic Surgery of the Spine
PROC: 0SG00AJ Fusion of Lumbar Vertebral Joint with Interbody Fusion Device, Posterior Approach, Anterior Column, Open Approach (ICD-10-PCS; principal; 2023-11-13 07:45)
DX: M48.061 Spinal stenosis, lumbar region without neurogenic claudication (principal); M43.16 Spondylolisthesis, lumbar region; M47.26 Other spondylosis with radiculopathy, lumbar region; M41.26 Other idiopathic scoliosis, lumbar region; E88.2 Lipomatosis, not elsewhere classified; I10 Essential (primary) hypertension; E78.5 Hyperlipidemia, unspecified; I25.10 Atherosclerotic heart disease of native coronary artery without angina pectoris
CPT/HCPCS: 36415; 72100; 76000; 85014; 85018; 97161; 97165; 97530; 97535; C1713; C9290; J0171; J0330; J0690; J1100; J1170; J2175; J2405; J2704; J3410

== ENCOUNTER 2025-02-13 13:25 | Day surgery (SDC) | payer OTHER, SELFPAY ==
[2023-11-13 06:12] VITALS: BMI 25.9
[2025-02-06 13:21] VITALS: BMI 26.4
[2025-02-13 13:53] VITALS: BP 148/89; PULSE 69; RESP 18; TEMP 36.7; O2SAT 98
[2025-02-13] MEDS: LACTATED RINGERS 1,000 ML 42 ML IV ×2 (13:58→16:59)
--- NOTE | 2025-02-13 14:41 | P.OP.PRE_ITS ---
Pre-operative Note
--- NOTE | 2025-02-13 14:41 | PM.PREOP ---
Pre-operative Note COVID-19 COVID-19 status: Not tested Interval Note History & Physical reviewed/Exam performed by Physician: Yes Changes to H&P: No ASA Class (for procedural sedation): II
--- NOTE | 2025-02-13 16:18 | SUR.OPER ---
Lateral on a melendez bag, head on pillow, gel axillary roll in place, bottom leg bent gel under knee to foot, upper leg straight and supported with pillows. Upper arm supported by pillows and secured over bottom arm to padded arm board. Safety belt at hip, tape over blanket lower legs.
--- NOTE | 2025-02-13 16:30 | SUR.OPER ---
Lateral on a melendez bag, head on pillow, gel axillary roll in place, bottom leg bent with gel pad under knee to foot, upper leg straight and supported with pillows. Upper arm supported by pillows and secured over bottom arm to padded arm board. Safety belt at hip, tape over blanket lower legs.
--- NOTE | 2025-02-13 17:19 | P.OP_ITS ---
Operative Date/Time/Diagnoses
--- NOTE | 2025-02-13 17:19 | PM.OP.1 ---
Operative Date/Time/Diagnoses Date of procedure: 02/13/25 Time of procedure: 17:20 Pre-op diagnosis: Right back melanoma, left upper back basal cell carcinoma Post-op diagnosis: same Procedure & Clinicians Procedure: Wide local excision of right lower back melanoma with [place] flap reconstruction Wide local excision of left upper back basal cell carcinoma with primary closure Same procedure(s) as scheduled: Yes Surgeon: José Miguel Crooks Assisted?: No Anesthesia Type: General Operative Notes Findings: Melanoma Applied: none Estimated Blood Loss (mL): 20 Procedure in detail: The patient was brought to the operating room and general anesthesia was induced with the LMA. He was then positioned in the left lateral decubitus position on a melendez bag. It was secured to the table. The right lower back and left upper back were prepped and draped in the usual fashion and a time-out was performed. A 1 cm margin was marked around the shave biopsy scar from the right lower back melanoma. The biopsy scar was oriented transversely. A 3 cm by 6 cm ellipse was excised down to the muscle fascia. The specimen was oriented with a short stitch superior and a long stitch lateral. Next a [place] flap was created taking tissue from superior to the wound. The skin edges were all brought together using multiple interrupted 3-0 and 2-0 Vicryl dermal sutures followed by 2 nylon mattress sutures. Next the left upper back basal cell scar was identified. The scar tissue was excised with a 5 mm margin down to the fascia. This specimen was approximately 3 cm x 1 cm and was also marked with a short stitch superiorly and a long stitch lateral. The incision was closed transversely with interrupted 3-0 dermal sutures followed by two 2-0 nylon mattress sutures. Sterile dressings were applied over both wounds followed by 4x4s and paper tape. The patient was awakened and brought to recovery room. Complications: none Post-operative Condition: stable Disposition: PACU
[2025-02-13 17:25] VITALS: BP 116/69; PULSE 61; RESP 12; TEMP 36.2; O2SAT 94
[2025-02-13 17:32] VITALS: BP 119/72; PULSE 61; RESP 13; O2SAT 92
[2025-02-13 17:36] VITALS: BP 125/76; PULSE 68; RESP 14; O2SAT 100
[2025-02-13 17:42] VITALS: BP 147/79; PULSE 67; RESP 8; O2SAT 98
[2025-02-13 17:48] VITALS: BP 144/89; PULSE 67; RESP 13; TEMP 36.8; O2SAT 96
== END 2025-02-13 18:30 | disposition home or self-care (01) ==
PROVIDERS: PCP Family Medicine; Referring Provider Surgery; Visit Provider Surgery
PROC: (CPT 14001; principal; 2025-02-13 14:45)
DX: C43.59 Malignant melanoma of other part of trunk (principal); C44.519 Basal cell carcinoma of skin of other part of trunk
CPT/HCPCS: 14001; 11603; 12032; J1100; J1885; J2405; J2704; J3010; J7120

== ENCOUNTER 2025-03-03 11:56 | Emergency (ER) | payer OTHER, SELFPAY ==
[2023-11-13 06:12] VITALS: BMI 25.9
[2025-03-03 12:19] VITALS: BP 168/75; PULSE 68; RESP 18; O2SAT 99; BMI 27.1
--- NOTE | 2025-03-03 13:06 | ED.BACK ---
HPI - Back Pain/Injury <Enzo Fontenot PA-C - Last Filed: 03/03/25 18:30> General Chief Complaint: Back Pain/Injury Stated Complaint: Abdominal pain ,leg numbness Time Seen by Provider: 03/03/25 12:29 Source: patient and family History of Present Illness HPI Narrative: 60-year-old male past medical history GERD, CAD, status post stent placement, hypertension, hyperlipidemia, melanoma, lumbar radiculopathy, status post lumbar spinal fusion presents to the ED with generalized abdominal pain wrapping around to the back. Patient also has a history of lumbar spinal fusion, with baseline numbness of the left leg. Patient has recently been experiencing numbness in the right leg as well. No new trauma. Patient had a surgery to remove the melanoma from his back last week. No fever, chills, nausea, vomiting, dysuria, lightheadedness, dizziness, syncope. Related Data Home Medications ?Medication ?Instructions ?Recorded ?Confirmed metoprolol succinate 50 mg 50 mg PO BEDTIME 09/09/22 02/20/25 tablet,extended release 24 hr rosuvastatin 20 mg tablet 20 mg PO BEDTIME 09/09/22 02/20/25 aspirin 81 mg tablet,delayed 81 mg PO DAILY 05/31/23 02/20/25 release Previous Rx's ?Medication ?Instructions ?Recorded gabapentin 300 mg capsule 300 mg PO BEDTIME #90 caps 02/05/24 valsartan 160 mg tablet 160 mg PO BID #30 tabs 01/13/25 Allergies Allergy/AdvReac Type Severity Reaction Status Date / Time lisinopril AdvReac Intermediate Cough Verified 02/20/25 15:26 spironolactone AdvReac Intermediate Chest Verified 02/20/25 15:26 tenderness atorvastatin AdvReac Cramps. Verified 02/20/25 15:26 carvedilol AdvReac Leg edema. Verified 02/20/25 15:26 hydrochlorothiazide AdvReac Muscle Verified 02/20/25 15:26 cramps & urinary frequency. NSAIDS (Non-Steroidal AdvReac Verified 02/20/25 15:26 Anti-Inflamma Review of Systems <Enzo Fontenot PA-C - Last Filed: 03/03/25 18:30> Constitutional Constitutional: Denies chills, Denies fatigue, Denies fever(s), Denies frequent falls, Denies lethargy and Denies weakness Eyes Eyes: Denies change in vision, Denies eye discharge, Denies irritation and Denies loss of vision ENT Ears, Nose, Mouth, and Throat: Denies change in voice, Denies dizziness, Denies neck pain, Denies sore throat and Denies throat swelling Cardiovascular Cardiovascular: Denies chest pain, Denies irregular heart rhythm, Denies lightheadedness, Denies palpitations, Denies dyspnea, Denies dyspnea on exertion and Denies orthopnea Respiratory Respiratory: Denies cough, Denies dyspnea, Denies dyspnea on exertion and Denies wheezing Gastrointestinal Gastrointestinal: Reports abdominal pain, Denies change in bowel habits, Denies diarrhea, Denies nausea and Denies vomiting Musculoskeletal Musculoskeletal: Reports back pain, Denies neck pain and Reports numbness Integumentary/Breasts Skin/Breast: Denies pruritus, Denies erythema, Denies rash and Denies wounds Neurologic Neurologic: Denies behavioral changes, Denies confusion, Denies dizziness, Denies frequent falls, Denies loss of vision, Reports numbness and Denies weakness Psychiatric Psychiatric: Denies anxiety, Denies behavioral changes, Denies confusion, Denies depression, Denies homicidal ideation and Denies suicidal ideation Endocrine Endocrine: Denies fatigue, Denies flushing and Denies palpitations Hematologic/Lymphatic Hematologic/Lymphatic: Denies easy bruising Allergic/Immunologic Allergic/Immunologic: Denies urticaria, Denies throat swelling and Denies wheezing Patient History <Enzo Fontenot PA-C - Last Filed: 03/03/25 18:30> Medical History Thoracic aortic aneurysm (TAA) CHF (congestive heart failure) Dilated cardiomyopathy Ankylosing spondylitis (2024) Skin lesion of right external ear History of COVID-19 (~2019) Bicuspid aortic valve Chest pain Anemia Osteoarthritis Shoulder pain Fractures Chronic back pain Chicken pox (~1968) Hemorrhoid GERD (gastroesophageal reflux disease) Aortic regurgitation Heart murmur Hypertension Hyperlipidemia Lumbar back pain with radiculopathy affecting lower extremity CAD (coronary artery disease) Polyarthralgia Surgical History History of back surgery (02/14/24) History of cardiac catheterization (11/19/21) Anesthesia History of coronary artery stent placement (11/2021) Family History Father Cancer Mother Cancer Grandfather Alzheimer's disease Grandmother History of emphysema Grandmother Stroke Social History household members: spouse, family and children Smoking Status: Never smoker alcohol intake: current Smoking Status: Never smoker alcohol intake frequency: a few times a week Exam <Enzo Fontenot PA-C - Last Filed: 03/03/25 18:30> Narrative Exam Narrative: Const General:?cooperative, healthy appearing and comfortable [facility] Head:?normal to inspection Ears:?hearing grossly normal bilaterally Nose:?external nose normal Face and sinus:?normal facial exam and sinuses nontender Mouth:?oral mucosae normal Throat:?posterior oropharynx normal Eyes General:?appearance normal, both eyes and all related structures Neck Neck:?normal visual inspection and no lymphadenopathy noted Resp Effort & Inspection:?normal respiratory effort Auscultation:?clear to auscultation bilaterally Cardio Rate:?regular rate Rhythm:?regular rhythm GI Abdomen is soft, nondistended, nontender to palpation. No CVA tenderness. Integumentary The site of excision for the melanoma appears to be healing well without signs of infection. Musculoskeletal No midline tenderness to palpation. No paraspinal tenderness to palpation. Gait is normal. Neurovascularly intact. Neuro General:?patient alert, patient awake and patient oriented x3 Initial Vital Signs Initial Vital Signs: Vital Signs Pulse Rate 68 03/03/25 12:19 Respiratory Rate 18 03/03/25 12:19 Blood Pressure 168/75 H 03/03/25 12:19 Pulse Oximetry 99 03/03/25 12:19 Oxygen Delivery Method Room Air 03/03/25 12:19 <Mitch Geller MD - Last Filed: 03/03/25 22:13> Initial Vital Signs Initial Vital Signs: Vital Signs Pulse Rate 68 03/03/25 12:19 Respiratory Rate 18 03/03/25 12:19 Blood Pressure 168/75 H 03/03/25 12:19 Pulse Oximetry 99 03/03/25 12:19 Oxygen Delivery Method Room Air 03/03/25 12:19 Course <Enzo Fontenot PA-C - Last Filed: 03/03/25 18:30> Orders Ordered: ED Orders 03/03/25 13:47 CT abdomen pelvis w con Stat 03/03/25 14:13 CBC Auto Diff [Complete Blood Count AUTO DIFF] Stat CMP [Comprehensive Metabolic Panel] Stat 03/03/25 14:15 Urinalysis and Microscopic Stat Discontinued Medications Acetaminophen (Acetaminophen 325 Mg Tablet) 975 mg PO NOW ONE Stop: 03/03/25 14:17 Last Admin: 03/03/25 14:49 Dose: 975 mg Documented By: MARBIN Cyclobenzaprine HCl (Cyclobenzaprine 10 Mg Tablet) 10 mg PO NOW ONE Stop: 03/03/25 14:17 Last Admin: 03/03/25 14:49 Dose: 10 mg Documented By: MARBIN Vital Signs Vital signs: Vital Signs - 8 hr 03/03/25 17:56 03/03/25 18:28 Temperature 98 F Pulse Rate 56 L 60 Respiratory Rate 16 14 Blood Pressure 152/77 H 133/76 Pulse Oximetry 99 99 Oxygen Delivery Method Room Air Room Air <Mitch Geller MD - Last Filed: 03/03/25 22:13> Orders Ordered: ED Orders 03/03/25 13:47 CT abdomen pelvis w con Stat 03/03/25 14:13 CBC Auto Diff [Complete Blood Count AUTO DIFF] Stat CMP [Comprehensive Metabolic Panel] Stat 03/03/25 14:15 Urinalysis and Microscopic Stat Discontinued Medications Acetaminophen (Acetaminophen 325 Mg Tablet) 975 mg PO NOW ONE Stop: 03/03/25 14:17 Last Admin: 03/03/25 14:49 Dose: 975 mg Documented By: MARBIN Cyclobenzaprine HCl (Cyclobenzaprine 10 Mg Tablet) 10 mg PO NOW ONE Stop: 03/03/25 14:17 Last Admin: 03/03/25 14:49 Dose: 10 mg Documented By: MARBIN Vital Signs Vital signs: Vital Signs - 8 hr 03/03/25 17:56 03/03/25 18:28 Temperature 98 F Pulse Rate 56 L 60 Respiratory Rate 16 14 Blood Pressure 152/77 H 133/76 Pulse Oximetry 99 99 Oxygen Delivery Method Room Air Room Air MDM - Back Pain/Injury <Enzo Fontenot PA-C - Last Filed: 03/03/25 18:30> Lab Data 03/03/25 14:13 03/03/25 14:13 Labs: Lab Results 03/03/25 03/03/25 Range/Units 14:13 14:15 WBC 5.5 (4.5-11.0) X10^3/uL RBC 4.36 L (4.5-5.9) X10^6/uL Hgb 14.2 (13.5-17.5) g/dL Hct 41.3 (41-53) % MCV 94.7 (80-100) fL MCH 32.5 (26-34) PG MCHC 34.4 (30-36) % RDW 13.0 (11.6-14.8) % Plt Count 258 (150-400) X10^3/uL Neut % (Auto) 69.8 (50-75) % Lymph % (Auto) 19.4 L (25-40) % [place] % (Auto) 7.6 (3-14) % Eos % (Auto) 2.6 (2-4) % Baso % (Auto) 0.6 (0-2) % Neut # (Auto) 3900 (4676-2965) /uL Lymph # (Auto) 1100 (0486-2732) /uL [place] # (Auto) 400 (0-900) /uL Eos # (Auto) 100 (0-450) /uL Baso # (Auto) 0 (0-100) /uL Sodium 141 (137-145) mmol/L Potassium 3.9 (3.4-5.1) mmol/L Chloride 104 (98-107) mmol/L Carbon Dioxide 29 (22-32) mmol/L BUN 16 (9-20) mg/dL Creatinine 0.98 (0.66-1.25) mg/dL Estimated GFR > 60 (>60) mL/min BUN/Creatinine Ratio 16.3 (6-22) Glucose 94 (70-99) mg/dL Calcium 9.1 (8.4-10.2) mg/dL Total Bilirubin 0.6 (0.2-1.3) mg/dL AST 32 (17-59) IU/L ALT 23 (<50) IU/L Alkaline Phosphatase 46 (38-126) U/L Total Protein 7.1 (6.3-8.2) g/dL Albumin 4.6 (3.5-5.0) g/dL Globulin 2.5 (1.7-4.1) g/dL Albumin/Globulin Ratio 1.8 (1.0-2.8) Urine Color Yellow Urine Appearance Clear Urine pH 6.5 (4.5-8.0) Ur Specific [place] 1.010 (1.000-1.035) Urine Protein Negative (Negative) Urine Glucose (UA) Negative (Negative) g/dL Urine Ketones Negative (NEGATIVE) Urine Occult Blood Negative (Negative) Urine Nitrate Negative (Negative) Urine Bilirubin Negative (NEGATIVE) Urine Urobilinogen 0.2 (0.2) E.U./dL Ur Leukocyte Esterase Negative (NEGATIVE) Urine RBC 0-1/hpf (0-5/HPF) Urine WBC 0-1/hpf (0-5/HPF) Ur Squamous Epith Cells 0-1 /hpf (0-5/HPF) Urine Bacteria Occasional (0-1) (None) Ur Culture Indicated? Cult not indicated Vol Urine Centrifuged 10ml (spun) MDM Narrative Medical decision making narrative: 60-year-old male past medical history GERD, CAD, status post stent placement, hypertension, hyperlipidemia, melanoma, lumbar radiculopathy, status post lumbar spinal fusion presents to the ED with generalized abdominal pain wrapping around to the back. Obtained labs, UA, CT abdomen pelvis. UA is without UTI. Labs unremarkable. CT abdomen pelvis with bone windows shows epiploic appendagitis, left lateral lower abdomen. No other potentially acute findings in the abdomen and pelvis. No aggressive osseous abnormality. No compression fractures. Remote lower lumbar fusion. There is a 4.6 cm ascending aortic aneurysm. Prostatomegaly. Mild bladder wall thickening may indicate a degree of bladder outlet obstruction. Diverticulosis. Severe coronary artery calcifications, top-normal heart size. A postvoid bladder scan was done which shows 9 mL of residual urine. Discussed findings with patient, that treatment is usually pain control for epiploic appendagitis. Recommend continuing Tylenol for pain control. Recommend follow-up with PCP as soon as possible for further evaluation. Recommend follow-up with ortho for the back issues and the right leg numbness. ED return precautions discussed with patient. Patient verbalized understanding. Medical records reviewed: Yes <Mitch Geller MD - Last Filed: 03/03/25 22:13> Lab Data Labs: Lab Results 03/03/25 03/03/25 Range/Units 14:13 14:15 WBC 5.5 (4.5-11.0) X10^3/uL RBC 4.36 L (4.5-5.9) X10^6/uL Hgb 14.2 (13.5-17.5) g/dL Hct 41.3 (41-53) % MCV 94.7 (80-100) fL MCH 32.5 (26-34) PG MCHC 34.4 (30-36) % RDW 13.0 (11.6-14.8) % Plt Count 258 (150-400) X10^3/uL Neut % (Auto) 69.8 (50-75) % Lymph % (Auto) 19.4 L (25-40) % [place] % (Auto) 7.6 (3-14) % Eos % (Auto) 2.6 (2-4) % Baso % (Auto) 0.6 (0-2) % Neut # (Auto) 3900 (0378-6353) /uL Lymph # (Auto) 1100 (2374-9372) /uL [place] # (Auto) 400 (0-900) /uL Eos # (Auto) 100 (0-450) /uL Baso # (Auto) 0 (0-100) /uL Sodium 141 (137-145) mmol/L Potassium 3.9 (3.4-5.1) mmol/L Chloride 104 (98-107) mmol/L Carbon Dioxide 29 (22-32) mmol/L BUN 16 (9-20) mg/dL Creatinine 0.98 (0.66-1.25) mg/dL Estimated GFR > 60 (>60) mL/min BUN/Creatinine Ratio 16.3 (6-22) Glucose 94 (70-99) mg/dL Calcium 9.1 (8.4-10.2) mg/dL Total Bilirubin 0.6 (0.2-1.3) mg/dL AST 32 (17-59) IU/L ALT 23 (<50) IU/L Alkaline Phosphatase 46 (38-126) U/L Total Protein 7.1 (6.3-8.2) g/dL Albumin 4.6 (3.5-5.0) g/dL Globulin 2.5 (1.7-4.1) g/dL Albumin/Globulin Ratio 1.8 (1.0-2.8) Urine Color Yellow Urine Appearance Clear Urine pH 6.5 (4.5-8.0) Ur Specific [place] 1.010 (1.000-1.035) Urine Protein Negative (Negative) Urine Glucose (UA) Negative (Negative) g/dL Urine Ketones Negative (NEGATIVE) Urine Occult Blood Negative (Negative) Urine Nitrate Negative (Negative) Urine Bilirubin Negative (NEGATIVE) Urine Urobilinogen 0.2 (0.2) E.U./dL Ur Leukocyte Esterase Negative (NEGATIVE) Urine RBC 0-1/hpf (0-5/HPF) Urine WBC 0-1/hpf (0-5/HPF) Ur Squamous Epith Cells 0-1 /hpf (0-5/HPF) Urine Bacteria Occasional (0-1) (None) Ur Culture Indicated? Cult not indicated Vol Urine Centrifuged 10ml (spun) MDM Narrative Medical decision making narrative: 60-year-old male past medical history GERD, CAD, status post stent placement, hypertension, hyperlipidemia, melanoma, lumbar radiculopathy, status post lumbar spinal fusion presents to the ED with generalized abdominal pain wrapping around to the back. Obtained labs, UA, CT abdomen pelvis. UA is without UTI. Labs unremarkable. CT abdomen pelvis with bone windows shows epiploic appendagitis, left lateral lower abdomen. No other potentially acute findings in the abdomen and pelvis. No aggressive osseous abnormality. No compression fractures. Remote lower lumbar fusion. There is a 4.6 cm ascending aortic aneurysm. Prostatomegaly. Mild bladder wall thickening may indicate a degree of bladder outlet obstruction. Diverticulosis. Severe coronary artery calcifications, top-normal heart size. A postvoid bladder scan was done which shows 9 mL of residual urine. Discussed findings with patient, that treatment is usually pain control for epiploic appendagitis. Recommend continuing Tylenol for pain control. Recommend follow-up with PCP as soon as possible for further evaluation. Recommend follow-up with ortho for the back issues and the right leg numbness. ED return precautions discussed with patient. Patient verbalized understanding. Medical records reviewed: Yes I was available for consultation during this patient's visit was not involved in the care. Discharge Plan Departure Patient Disposition: Home Clinical Impression: Numbness Abdominal pain Qualifiers: Abdominal location: generalized Qualified Code(s): R10.84 - Generalized abdominal pain Instructions: DI for Sciatica, DI for Abdominal Pain-Adult Activity Restrictions/Additional Instructions: You were evaluated in the emergency department for abdominal, back pain and right leg numbness. Your labs and urine were normal. The CT scan shows epiploic appendagitis of the abdomen, which can cause pain. Your leg numbness is likely related to your chronic back issues, and will need re-evaluation by and ortho specialist. You may call [facility] at [phone] to make an appointment. The epiploic appendagitis is something that will resolve spontaneously over the next several days. The treatment for it is usually pain control for which you may take Tylenol. Please follow-up with your PCP as soon as possible. Return to the ED if you have worsening symptoms, numbness, tingling, weakness, urinary difficulties. Prescriptions: No Action gabapentin 300 mg capsule 300 mg PO BEDTIME Qty: 90 1RF valsartan 160 mg tablet 160 mg PO BID Qty: 30 0RF rosuvastatin 20 mg tablet 20 mg PO BEDTIME metoprolol succinate 50 mg tablet extended release 24 hr 50 mg PO BEDTIME aspirin 81 mg tablet,delayed release (DR/EC) 81 mg PO DAILY Referrals: Santi Lee DO [Primary Care Provider, Family Practice] Stand Alone Forms: Patient Portal/API
--- NOTE | 2025-03-03 13:47 | DI.CT.S_ITS ---
PROCEDURE: CT ABDOMEN PELVIS W CON INDICATIONS: thoracic back pain, abd pain TECHNIQUE: After the administration of intravenous contrast, axial sections acquired from the lung bases to the pubic symphysis. Coronal and sagittal reformats were performed. For radiation dose reduction, the following was used: automated exposure control, adjustment of mA and/or kV according to patient size. COMPARISON: [facility], CR, XR CHEST 1 VIEW, 03/09/2024, 17:39. [facility], CT, CT ANGIO CHEST, 03/09/2024, 17:49. FINDINGS: Image quality: Diagnostic. Lower Chest: 4.6 cm ascending aortic aneurysm, similar to previous. Severe multi-vessel coronary artery calcifications. Aortic valvular calcifications. Top normal heart size. Extreme lung bases are clear. ABDOMEN: Liver: No solid mass. Gallbladder: No radiopaque gallstones or wall thickening. Biliary ducts: No biliary dilation. Pancreas: No ductal dilation. Spleen: Size is within normal limits. Adrenal Glands: No adrenal nodules. Kidneys and Ureters: No hydronephrosis. No solid mass. No complex renal cystic lesion which requires follow up. Stomach and Bowel: Normal colonic caliber, without significant wall thickening. Diverticulosis without CT evidence of acute diverticulitis. Normal appendix. Peritoneum: Suspect focal area of epiploic appendagitis on image 107 of series 3 in the left lateral lower abdomen. No abnormal intraperitoneal fluid. No free air. Ventral Wall: No significant ventral hernia. Abdominal Nodes: No retroperitoneal or mesenteric adenopathy by size criteria. Vessels: Aorta and inferior vena cava are normal in size. PELVIS: Pelvic Organs: Prostatomegaly.. Bladder: Mild bladder wall thickening. Pelvic Nodes: No enlarged lymph nodes. Miscellaneous: No inguinal hernias are seen. Bones: No aggressive osseous abnormality. No compression fractures. Remote lower lumbar fusion. IMPRESSION: 1. Suspect epiploic appendagitis, left lateral lower abdomen. 2. No other potentially acute findings in the abdomen and pelvis. 3. Diverticulosis. 4. Severe coronary artery calcifications, top normal heart size. 5. 4.6 cm sending aortic aneurysm. 6. Prostatomegaly. 7. Mild bladder wall thickening may indicate a degree of bladder outlet obstruction. Dictated by: Rohan Cody M.D. on 03/03/2025 at 15:01 Approved by: Rohan Cody M.D. on 03/03/2025 at 15:12
[2025-03-03 14:43] LABS: Add Manual Diff / Slide Review NO; Hematocrit 41.3 % (41-53); Hemoglobin 14.2 g/dL (13.5-17.5); Lymphocytes Absolute Auto 1100 /uL (1100-4500); Mean Corpuscular HGB Conc 34.4 % (30-36); Mean Corpuscular Hemoglobin 32.5 PG (26-34); Mean Corpuscular Volume 94.7 fL (80-100); Platelet Count 258 X10^3/uL (150-400)
[2025-03-03] MEDS: CYCLOBENZAPRINE 10 MG TABLET PO (14:49)
[2025-03-03] MEDS: ACETAMINOPHEN 325 MG TABLET 975 MG PO (14:49)
[2025-03-03 14:55] LABS: Alanine Aminotransferase 23 IU/L (<50); Albumin 4.6 g/dL (3.5-5.0); Albumin Globulin Ratio 1.8 (1.0-2.8); Alkaline Phosphatase 46 U/L (38-126); Blood Urea Nitrogen 16 mg/dL (9-20); Calcium 9.1 mg/dL (8.4-10.2); Carbon Dioxide 29 mmol/L (22-32); Chloride 104 mmol/L (98-107); Estimated Glomerular Filt Rate > 60 mL/min (>60); Globulin 2.5 g/dL (1.7-4.1); Glucose 94 mg/dL (70-99); HEMOLYSIS < 15 (0-50); Potassium 3.9 mmol/L (3.4-5.1); Sodium 141 mmol/L (137-145); Total Protein 7.1 g/dL (6.3-8.2)
[2025-03-03 17:44] LABS: Appearance Urine UA CLEAR; Bilirubin Urine UA NEGATIVE (NEGATIVE); Color Urine UA YELLOW; Glucose Urine UA NEGATIVE (Negative); Ketones Urine UA NEGATIVE (NEGATIVE); Leukocyte Esterase Urine UA NEGATIVE (NEGATIVE); Nitrite Urine UA NEGATIVE (Negative); Occult Blood Urine UA NEGATIVE (Negative); Protein Urine UA NEGATIVE (Negative); Specific Gravity Urine UA 1.010 (1.000-1.035); Urobilinogen Urine UA 0.2 E.U./dL (0.2); pH Urine UA 6.5 (4.5-8.0)
[2025-03-03 17:56] VITALS: BP 152/77; PULSE 56; RESP 16; O2SAT 99
[2025-03-03 18:01] LABS: Culture Indicated Urine Cult Not Indicated
[2025-03-03 18:28] VITALS: BP 133/76; PULSE 60; RESP 14; TEMP 36.6; O2SAT 99
== END 2025-03-03 18:29 | disposition home or self-care (01) ==
PROVIDERS: Emergency Provider Student in an Organized Health Care Education/Training Program; PCP Family Medicine
DX: R10.84 Generalized abdominal pain (principal); R20.0 Anesthesia of skin; K63.89 Other specified diseases of intestine; Z98.1 Arthrodesis status
CPT/HCPCS: 74177; 80053; 81001; 85025; 99283; 99284; Q9967

== ENCOUNTER → 2025-04-09 16:33 | Outpatient (CLI) | payer OTHER, SELFPAY ==
[2025-04-07 16:48] VITALS: BMI 25.9
[2025-04-09 18:54] LABS: Add Manual Diff / Slide Review NO; Hematocrit 33.2 % (41-53); Hemoglobin 11.2 g/dL (13.5-17.5); Lymphocytes Absolute Auto 900 /uL (1100-4500); Mean Corpuscular HGB Conc 33.8 % (30-36); Mean Corpuscular Hemoglobin 32.5 PG (26-34); Mean Corpuscular Volume 96.2 fL (80-100); Platelet Count 212 X10^3/uL (150-400)
[2025-04-09 19:53] LABS: Alanine Aminotransferase 44 IU/L (<50); Albumin 3.8 g/dL (3.5-5.0); Albumin Globulin Ratio 1.7 (1.0-2.8); Alkaline Phosphatase 51 U/L (38-126); Blood Urea Nitrogen 16 mg/dL (9-20); Calcium 9.2 mg/dL (8.4-10.2); Carbon Dioxide 30 mmol/L (22-32); Chloride 103 mmol/L (98-107); Estimated Glomerular Filt Rate > 60 mL/min (>60); Globulin 2.3 g/dL (1.7-4.1); Glucose 113 mg/dL (70-99); HEMOLYSIS < 15 (0-50); Potassium 3.9 mmol/L (3.4-5.1); Sodium 139 mmol/L (137-145); Total Protein 6.1 g/dL (6.3-8.2)
== END ==
PROVIDERS: PCP Family Medicine; Referring Provider Physician Assistant; Visit Provider Physician Assistant
DX: R60.0 Localized edema (principal)
CPT/HCPCS: 80053; 85025; 85379